=== PATIENT | male | born 1965 | race Two or more races ===

== ENCOUNTER 2018-01-28 11:59 | Emergency (ER) | payer OTHER ==
[~2018-01-28] VITALS: Ht 172.7 cm; Wt 81.8 kg
[2018-01-28 16:47] VITALS: BP 142/81
== END 2018-01-28 16:50 | disposition home or self-care (01) ==
LOC: EMS 12:01
DX: S00.83XA Contusion of other part of head, initial encounter (principal); M54.2 Cervicalgia; I10 Essential (primary) hypertension; F17.210 Nicotine dependence, cigarettes, uncomplicated; W19.XXXA Unspecified fall, initial encounter; Y93.89 Activity, other specified; Y92.89 Other specified places as the place of occurrence of the external cause; Y99.8 Other external cause status
CPT/HCPCS: 70100; 72040; 99284; 99406